=== PATIENT | female | born 1995 | race Caucasian/White ===

== ENCOUNTER → 2016-05-04 | Outpatient (CLI) | payer BC ==
[2016-05-04 14:44] LABS: BASO % 0.7 %; BASO ABS # 0.05 K/uL (0-0.2); COMPLETE YES; EOS % 2.7 %; HEMATOCRIT 44.1 % (37-47); IG% 0.1 %; LYMPH % 19.9 %; LYMPH ABS # 1.41 K/uL (1.2-3.4); MEAN CELL VOLUME 91.9 fL (80-100); MEAN CORPUSCULAR HEMOGLOBIN 30.8 pg (25-34); MEAN CORPUSCULAR HGB CONC 33.6 g/dl (32-36); MEAN PLATELET VOLUME 10.5 fL (7.4-10.4); NEUT % 69.6 %; PLATELET COUNT 353 K/uL (130-400)
[2016-05-04 14:57] LABS: ALT/SGPT 20 U/L (12-78); BLOOD UREA NITROGEN 11 mg/dl (7-18); CALCIUM 9.2 mg/dl (8.5-10.1); CARBON DIOXIDE 22 mmol/L (21-32); CHLORIDE 106 mmol/L (98-107); GLUCOSE 91 mg/dl (70-99); POTASSIUM 4.1 mmol/L (3.5-5.1); SODIUM 139 mmol/L (136-145)
[2016-05-04 15:08] LABS: ALKALINE PHOSPHATASE 44 U/L (45-117); AST/SGOT 10 U/L (15-37)
[2016-05-09 19:31] LABS: T3 REVERSE **TC 90963 19 ng/dL (8-25)
== END | disposition home or self-care (01) ==
LOC: C.LAB 13:17
PROVIDERS: ATTEND Chiropractor
DX: M79.1 Myalgia (principal)

== ENCOUNTER → 2016-07-11 | Outpatient (CLI) | payer BC ==
[2016-07-19 19:49] LABS: CHLAMYDIA TRACH RNA*** NOT DETECTED (NOT DETECTED); GC (NEIS GONORRHOEAE)RNA** NOT DETECTED (NOT DETECTED)
== END | disposition home or self-care (01) ==
LOC: C.LABSPEC 14:54
PROVIDERS: ATTEND Physician Assistant
DX: Z30.430 Encounter for insertion of intrauterine contraceptive device (principal)

== ENCOUNTER → 2016-10-17 | Outpatient (CLI) | payer BC | END | disposition home or self-care (01) | LOC: C.LABSPEC 14:13 | PROVIDERS: ATTEND Physician Assistant | DX: L29.8 Other pruritus (principal) ==

== ENCOUNTER → 2017-07-06 | Outpatient (CLI) | payer BC | END | disposition home or self-care (01) | LOC: C.LAB1850 14:28 | PROVIDERS: ATTEND Physician Assistant | DX: E03.9 Hypothyroidism, unspecified (principal) ==

== ENCOUNTER 2024-01-27 14:10 | Inpatient (IN) ==
[2024-01-27 17:51] LABS: Basophils # (auto) 0.05 K/uL (0.00-0.20); Basophils % (auto) 0.5 %; Eosinophils # (auto) 0.22 K/uL (0.00-0.50); Hematocrit (blood only) 39.7 % (37.0-47.0); Hemoglobin 13.3 g/dl (12.0-16.0); Immature Granulocytes # (auto) 0.06 K/uL (0.01-0.20); Immature Granulocytes % (auto) 0.5 %; Lymphocytes # (auto) 1.83 K/uL (1.20-3.40); Lymphocytes % (auto) 16.7 %; Mean Corpuscular Hemoglobin 28.9 pg (25.0-34.0); Mean Corpuscular Hgb Conc 33.5 g/dL (32.0-36.0); Mean Corpuscular Volume 86.1 fL (80.0-100.0); Mean Platelet Volume 10.7 fL (9.4-12.4); Monocytes # (auto) 0.84 K/uL (0.11-0.59); Monocytes % (auto) 7.7 %; Neutrophils # (auto) 7.94 K/uL (1.40-6.50); Neutrophils % (auto) 72.6 %; Platelet Count 242 K/uL (130-400); RDW Coefficient of Variation 14.2 % (11.5-14.5); RDW Standard Deviation 43.8 fL (36.4-46.3); Red Blood Count 4.61 M/uL (4.20-5.40); White Blood Count 10.94 K/ul (4.8-10.8)
[2024-01-27 17:55] LABS: Albumin Globulin Ratio 1.1 (0.9-2); Albumin Level 3.3 gm/dl (3.4-5.0); BUN Creatinine Ratio 25.8 (10-20); Bilirubin,Total 0.2 mg/dl (0.2-1.0); Creatinine Clr Calc Pharmacy 180.3 ml/min; Globulin 3.1 gm/dl (2.5-4.0); Potassium 3.8 mmol/L (3.5-5.1); Total Protein 6.4 gm/dl (6.0-8.3)
[2024-01-27 18:40] LABS: Creatinine Urine Random 187.8 mg/dl; Protein Creatinine Ratio Urine 0.8 (0-0.2); Total Protein Urine Random 150.7 mg/dl (0-11.9)
[2024-01-27] MEDS ORDERED: OXYTOCIN 30 UNITS/NSS 30 UNITS/500 ML BAG IV PRN (19:41)
[2024-01-27] MEDS ORDERED: CALCIUM CARBONATE 500 MG CHEWABLE TAB PO PRN (19:41)
[2024-01-27] MEDS ORDERED: LIDOCAINE 1% LOCAL 20 ML VIAL INFIL PRN (19:41)
--- NOTE | 2024-01-27 19:46 | History & Physical Report ---
Date of Service January 27, 2024 Assessment & Plan (1) 38 weeks gestation of : (2) Preeclampsia: (3) Gestational diabetes: Plan admit, labs reviewed. given ega and dx rec induction. due to no dilation, rec cx ripening with cytotec. reeval ongoing to place pandey in future. History of Present Illness Chief Complaint: ?leaking Primary Care Provider: Gini Massey 28yo at 38+wks ega presents to LD at [facility] with concerns of leaking, not confirmed but instead meets criteria for diagnosis of preeclampia, without se romaine features. Has had on and off ctx. No rom confirmed over multiple hours. +FM. PNC c/b 1. GDM, last efw 61% 2. Hypothyroid 3. obesity 4. Needs mmr pp. 5. echo normal 6. marginal cord insertion PNL rh pos, ri, gbs neg OBH: g1 GYNH: nl paps no stds Allergies Allergy/AdvReac Type Severity Reaction Status Date / Time house dust Allergy Intermediate ITCHY Verified 01/22/24 09:26 EYES, SNEEZING pollen extracts Allergy Intermediate ITCHY Verified 01/22/24 09:26 EYES, SNEEZING, CONGESTION Home Medications Medication Instructions Recorded Confirmed Type escitalopram oxalate 20 mg tablet 20 mg PO DAILY 04/21/19 01/27/24 History albuterol sulfate 90 mcg/actuation 1 inh inhalation Q6H PRN shortness 03/20/22 01/22/24 Rx aerosol inhaler (ProAir HFA) of breath or wheezing #8.5 grams cetirizine [Zyrtec] PO 11/21/22 01/22/24 History cholecalciferol (vitamin D3) PO 11/21/22 01/22/24 History albuterol sulfate 90 mcg/actuation 2 inh inhalation Q4H PRN shortness 05/01/23 01/27/24 Rx aerosol inhaler (Ventolin HFA) of breath or wheezing #8.5 grams 21-iron fu-folic acid 1 tab PO DAILY 06/27/23 01/27/24 History [ Complete] acetone (urine) test (Ketone Urine #50 ea 09/17/23 01/22/24 Rx Test strips) blood sugar diagnostic (OneTouch #150 ea 09/17/23 01/22/24 Rx Verio test strips) blood-glucose meter (OneTouch #1 ea 09/17/23 01/22/24 Rx Verio Reflect Meter) lancets 33 gauge (OneTouch Delica #150 ea 09/17/23 01/22/24 Rx Plus Lancet) breast pump #1 ea 09/21/23 01/22/24 Rx Synthroid 300 mcg tablet 300 mcg PO DAILY #100 tabs 12/06/23 01/27/24 Rx (levothyroxine) docusate sodium 100 mg capsule 100 mg PO HS 12/06/23 01/27/24 History (Dulcolax Stool Softener (docusate)) Patient History Medical History (Updated 01/27/24 @ 19:45 by Sandi Galeano MD, FACOG) Chlamydia Depression with anxiety Asthma Gail's thyroiditis Goiter Surgical History S/P wisdom tooth extraction Family History Mother Leiomyosarcoma Denies family history of Ovarian cancer Breast cancer Colorectal cancer Social History Smoking Status: Never smoker Do You Dip or Chew Tobacco: No; Hx Alcohol Use: No Hx Substance Use: No Preferred Language: [place] [employer] Manager Required: No Beliefs That Will Affect Care: None marital status: marital status details: Jed Mcclellan (31) [phone] Current Living Situation: Spouse Current Living Situation Comment: Patient lives with her mother, fob, cats-fob changing litter current occupational status: employed current occupation: [employer] Feels Safe at Home: Yes Safety Concerns: Feels Safe At This Time Review of Systems as per Subjective / HPI no garcia or visual change. Physical Exam Constitutional: WD/WN, vitals as above Genitourinary: per nurse cx closed and long. fhts reactive. Results & Data Vital Signs (Past 12 Hours) Vital Signs Temp Pulse Resp BP 01/27/24 19:34 103 H 01/27/24 19:34 143/86 H 01/27/24 15:33 112 H 01/27/24 15:33 127/94 01/27/24 14:40 99.5 F 122 H 20 135/90 01/27/24 14:31 122 H 135/90 01/27/24 14:30 20 01/27/24 14:30 99.5 F 20 Coding Level of Care Code None Diagnoses 38 weeks gestation of Z3A.38 Preeclampsia O14.90 Gestational diabetes O24.419
[2024-01-27] MEDS: miSOPROStoL 50 MCG TAB PO ONE (20:16)
--- NOTE | 2024-01-27 21:03 | Communication Note ---
Date of Service: January 27, 2024 spoke with nurse. pt stable. no concerns. will see how responds to po cytotec. plan exam at 4hrs and redose cytotec vs. if dilated cx, can consider pandey balloon.
[2024-01-28] MEDS: miSOPROStoL 50 MCG TAB PO ONE (00:16)
--- NOTE | 2024-01-28 04:12 | Labor Progress Brief Note ---
Date of Service January 28, 2024 Subjective no garcia or visual change. no ruq pain. no n/v. some cramps. no ctx, rom. Assessment & Plan (1) 38 weeks gestation of : (2) Preeclampsia: (3) Gestational diabetes: (4) Obesity affecting : Plan no evidence of worsening disease. bps ok. will plan to see if toco would support additional cytotec as i am not able to place pandey at this time. ultimate goal will be pandey with pit. Admission and Anticipated Discharge Date Admission Date: January 27, 2024 Physical Exam Constitutional: WD/WN, vitals as above Respiratory: normal respiratory effort, lungs clear to auscultation Cardiovascular: Rate/Rhythm: regular rate and regular rhythm Gastrointestinal (Abdomen): soft gravid nt efw 7-8# Musculoskeletal: tr edema nontender calves Neurologic: DTRs +2 no clonus Psychiatric: A+Ox3, euthymic affect Genitourinary: OB Exam Abdomen: + vertex (by US) Manual OB Exam: + cervical dilation fingertip (ext os, int os closed), + cervical effacement 60% and + station -2 OB Exam Monitor Tracing: + external FHT monitor used, + external uterine monitor used (just getting back on monitor), + category I and + normal FHT variability Results & Data Vital Signs (Past 12 Hours) Vital Signs Temp Pulse Resp BP 01/28/24 02:20 86 134/89 01/28/24 00:19 18 01/28/24 00:19 98.8 F 18 01/28/24 00:18 92 H 142/94 H 01/27/24 22:42 97.9 F 01/27/24 22:42 93 H 01/27/24 22:42 131/86 01/27/24 20:00 98.6 F 18 01/27/24 19:34 103 H 01/27/24 19:34 143/86 H Coding Level of Care Code None Diagnoses 38 weeks gestation of Z3A.38 Preeclampsia O14.90 Gestational diabetes O24.419 Obesity affecting O99.210
[2024-01-28] MEDS: OXYTOCIN 10 UNITS/ML VIAL ONE (04:16)
[2024-01-28] MEDS: miSOPROStoL 50 MCG TAB PO STA (06:48)
--- NOTE | 2024-01-28 11:01 | Labor Progress Brief Note ---
Date of Service January 28, 2024 Starting to feel ctx, is now 4h s/p most recent cytotec. Cervix 0.5/thick/high FHT Cat 1 [place] Q4 [place] bulb inserted, 35cc sterile water. Will start pitocin. Patient agreeable. Assessment & Plan Admission and Anticipated Discharge Date Admission Date: January 27, 2024 Results & Data Vital Signs (Past 12 Hours) Vital Signs Temp Pulse Resp BP 01/28/24 10:53 84 136/83 01/28/24 10:27 101 H 135/85 01/28/24 07:08 36.8 C 82 18 136/92 01/28/24 04:08 83 153/99 H 01/28/24 04:00 18 01/28/24 02:20 86 134/89 01/28/24 00:19 18 01/28/24 00:19 37.1 C 18 01/28/24 00:18 92 H 142/94 H Coding Level of Care Code None
[2024-01-28] MEDS: OXYTOCIN 30 UNITS/NSS 30 UNITS/500 ML BAG IV PRN (11:15)
[2024-01-28] MEDS: LACTATED RINGER'S 1,000 ML IV SCH (11:15)
[2024-01-28] MEDS: miSOPROStoL 50 MCG TAB ONE (11:31)
[2024-01-28] MEDS ORDERED: LIDOCAINE 2% MPF LOCAL 5 ML VIAL EPI PRN (14:18)
[2024-01-28] MEDS ORDERED: diphenhydrAMINE 50 MG/ML VIAL IV PRN (14:18)
[2024-01-28] MEDS ORDERED: NALBUPHINE HCL INJ 10 MG/ML AMP IV PRN (14:18)
[2024-01-28] MEDS ORDERED: SODIUM CHLORIDE 0.9% PF INJ 10 ML VIAL EPI PRN (14:18)
[2024-01-28] MEDS ORDERED: NALOXONE HCL 0.4 MG/1 ML VIAL/CARP IV PRN (14:18)
[2024-01-28] MEDS ORDERED: ROPIVACAINE 0.5% PF 5 MG/ML 20 ML VIAL EPI PRN (14:18)
[2024-01-28] MEDS ORDERED: ePHEDrine sulfate 50 MG/ML AMP IV PRN (14:18)
[2024-01-28] MEDS ORDERED: NALOXONE HCL 1 MG in SODIUM CHLORIDE 0.9% 1,000 ML IV PRN (14:18)
--- NOTE | 2024-01-28 14:19 | Anesthesiology Consultation ---
Date of Service January 28, 2024 Assessment & Plan (1) Encounter for pre-operative examination: Chart Review Chart Review: Patient NOT seen in Pre Admission Testing and Acceptable Risk for Labor Epidural Consults Requested none History Height/Weight Height: 5 ft 6 in Weight: 124.284 kg Allergies Allergy/AdvReac Type Severity Reaction Status Date / Time house dust Allergy Intermediate ITCHY Verified 01/22/24 09:26 EYES, SNEEZING pollen extracts Allergy Intermediate ITCHY Verified 01/22/24 09:26 EYES, SNEEZING, CONGESTION Medications Home Medications Medication Instructions Recorded Confirmed Last Taken escitalopram oxalate 20 mg tablet 20 mg PO DAILY 04/21/19 01/27/24 01/26/24 21:00 acetone (urine) test (Ketone Urine #50 ea 09/17/23 01/22/24 Unknown Test strips) blood sugar diagnostic (OneTouch #150 ea 09/17/23 01/22/24 Unknown Verio test strips) blood-glucose meter (OneTouch #1 ea 09/17/23 01/22/24 Unknown Verio Reflect Meter) lancets 33 gauge (OneTouch Delica #150 ea 09/17/23 01/22/24 Unknown Plus Lancet) breast pump #1 ea 09/21/23 01/22/24 Unknown Synthroid 300 mcg tablet 300 mcg PO DAILY #100 tabs 12/06/23 01/27/24 01/27/24 09:00 (levothyroxine) docusate sodium 100 mg capsule 100 mg PO HS 12/06/23 01/27/24 Unknown (Dulcolax Stool Softener (docusate)) [id number] 1 mg 1 tab PO DAILY 01/27/24 01/27/24 Unknown tablet Active Medications Generic Name Dose Route Start Last Admin Trade Name Freq PRN Reason Stop Dose Admin Oxytocin 30 units in 500 mls @ 7 mls/hr 01/28/24 10:58 01/28/24 13:20 Pitocin 30 Units/Nss IV 01/30/24 10:57 0.42 units/hr .Q24H PRN 7 mls/hr Labor Induction/Augmentation Titration Protocol 0.42 UNITS/HR Lactated Ringer's 1,000 mls @ 50 mls/hr 01/28/24 11:00 01/28/24 11:15 Lr IV 01/29/24 10:59 50 mls/hr .Q20H JUSTA Administration Past Medical History Medical History (Updated 01/28/24 @ 14:19 by Ezequiel Singh MD) Encounter for pre-operative examination Chlamydia Depression with anxiety Asthma Gail's thyroiditis Goiter Exercise / Class Metabolic Activity II 4-5 Yardwork/Stairs/Walk up hill Past Family History Family History Mother Leiomyosarcoma Denies family history of Ovarian cancer Breast cancer Colorectal cancer Past Surgical History Surgical History S/P wisdom tooth extraction Past Anesthesia History No Hx of Anesthesia Complications and No Family Hx of Anesthesia Complications Social History Smoking Status: Never smoker Do You Dip or Chew Tobacco: No Hx Alcohol Use: No Hx Substance Use: No substance use type: does not use Physical Exam Vital Signs Last Vital Signs Temp 36.8 C 01/28/24 14:28 Pulse 91 H 01/28/24 14:47 Resp 18 01/28/24 14:28 BP 123/87 01/28/24 14:47 Pulse Ox 100 01/28/24 14:47 Testing Laboratory Results 01/27/24 17:26 01/27/24 17:26 Blood Type A Positive 01/27/24 17:26 Antibody Screen NEGATIVE 01/27/24 17:26 01/28/24 04:22 POC Glucose 73
[2024-01-28] MEDS: LIDOCAINE 2%/EPINEPHRINE 1:200,000 20 ML PF EPI STA (14:56)
[2024-01-28] MEDS: BUPIVACAINE 0.25% PF 30 ML VIAL EPI PRN (14:57)
[2024-01-28] MEDS: fentaNYL citrate PF 100 MCG/2 ML VIAL EPI PRN (14:57)
[2024-01-28] MEDS: fentANYL 2 MCG/ML BUPIVacaine 0.125%-NSS 100ML BAG EPI PRN (14:59)
[2024-01-28] MEDS: BUPIVACAINE 0.25% PF 30 ML VIAL ONE (17:13)
[2024-01-28] MEDS: fentANYL 2 MCG/ML BUPIVacaine 0.125%-NSS 100ML BAG ONE (17:13)
[2024-01-28] MEDS: ePHEDrine sulfate 50 MG/ML AMP ONE (17:13)
[2024-01-28] MEDS: SODIUM CHLORIDE 0.9% PF INJ 10 ML VIAL ONE (17:13)
[2024-01-28] MEDS: fentaNYL citrate PF 100 MCG/2 ML VIAL ONE (17:13)
[2024-01-28] MEDS: LIDOCAINE 2%/EPINEPHRINE 1:200,000 20 ML PF ONE (17:14)
[2024-01-28] MEDS: BUPIVACAINE 0.25% PF 30 ML VIAL EPI STA (17:14)
[2024-01-28] MEDS: SODIUM CHLORIDE 0.9% PF INJ 10 ML VIAL EPI STA (17:14)
[2024-01-28] MEDS: fentaNYL citrate PF 100 MCG/2 ML VIAL EPI STA (17:14)
[2024-01-28] MEDS: ONDANSETRON INJ 2 MG/ML 2 ML VIAL IV PRN (17:43)
--- NOTE | 2024-01-28 18:52 | Labor Progress Brief Note ---
Date of Service January 28, 2024 Subjective Comfortable with epidural. FHT Cat 1 [place] Q 2 [place] bulb fell out. 4-/-3 AROM clear fluid. Assessment & Plan Admission and Anticipated Discharge Date Admission Date: January 27, 2024 Results & Data Vital Signs (Past 12 Hours) Vital Signs Temp Pulse Resp BP Pulse Ox 01/28/24 18:47 96 H 100 01/28/24 18:42 96 H 100 01/28/24 18:39 102 H 125/73 01/28/24 18:37 95 H 100 01/28/24 18:32 103 H 100 01/28/24 18:30 18 01/28/24 18:30 18 01/28/24 18:27 101 H 99 01/28/24 18:22 101 H 96 01/28/24 18:17 97 H 100 01/28/24 18:12 103 H 100 01/28/24 18:08 92 H 120/69 01/28/24 18:07 90 96 01/28/24 18:02 97 H 96 01/28/24 18:00 18 01/28/24 18:00 18 01/28/24 17:57 93 H 98 01/28/24 17:52 100 01/28/24 17:52 97 H 01/28/24 17:52 99 H 118/68 01/28/24 17:47 112 H 98 01/28/24 17:45 92 H 113/67 01/28/24 17:42 98 H 97 01/28/24 17:37 107 H 96 01/28/24 17:32 112 H 99 01/28/24 17:30 18 01/28/24 17:30 18 01/28/24 17:27 103 H 100 01/28/24 17:22 98 H 103/70 98 01/28/24 17:17 103 H 100 01/28/24 17:12 95 H 100 01/28/24 17:11 99 H 95/53 L 01/28/24 17:09 78 91 01/28/24 17:07 99 H 100 01/28/24 17:02 94 H 100 01/28/24 17:00 18 01/28/24 17:00 18 01/28/24 16:57 95 H 100 01/28/24 16:54 106 H 92 01/28/24 16:52 93 H 95/50 L 100 01/28/24 16:47 102 H 100 01/28/24 16:42 98 H 100 01/28/24 16:38 96 H 95/54 L 01/28/24 16:37 96 H 100 01/28/24 16:32 97 H 100 01/28/24 16:30 18 01/28/24 16:30 36.8 C 18 01/28/24 16:27 103 H 100 01/28/24 16:22 97 H 100 01/28/24 16:17 98 H 99 01/28/24 16:12 95 H 99 01/28/24 16:08 99 H 112/58 L 01/28/24 16:07 98 H 100 01/28/24 16:02 96 H 100 01/28/24 16:00 18 01/28/24 16:00 18 01/28/24 15:57 94 H 99 01/28/24 15:52 87 126/74 97 01/28/24 15:47 94 H 98 01/28/24 15:42 90 98 01/28/24 15:37 98 01/28/24 15:37 85 01/28/24 15:37 88 115/70 01/28/24 15:32 83 98 01/28/24 15:30 18 01/28/24 15:30 18 01/28/24 15:30 18 01/28/24 15:27 85 100 01/28/24 15:23 85 108/70 01/28/24 15:22 94 H 97 01/28/24 15:17 92 H 100 01/28/24 15:12 97 H 100 01/28/24 15:07 95 H 100 01/28/24 15:06 90 106/72 01/28/24 15:02 94 H 100 01/28/24 15:01 92 H 112/72 01/28/24 15:00 18 01/28/24 15:00 18 01/28/24 14:59 102 H 117/72 01/28/24 14:58 18 01/28/24 14:58 18 01/28/24 14:57 99 01/28/24 14:57 105 H 01/28/24 14:57 100 H 112/75 01/28/24 14:56 18 01/28/24 14:56 18 01/28/24 14:55 92 H 116/81 01/28/24 14:54 18 01/28/24 14:54 18 01/28/24 14:52 96 H 18 99 01/28/24 14:50 92 H 124/88 01/28/24 14:47 100 01/28/24 14:47 91 H 01/28/24 14:47 97 H 123/87 01/28/24 14:42 106 H 100 01/28/24 14:37 100 H 99 01/28/24 14:32 92 H 100 01/28/24 14:28 18 01/28/24 14:28 36.8 C 18 01/28/24 14:27 93 H 99 01/28/24 14:26 90 144/92 H 01/28/24 13:25 36.8 C 86 145/98 H 01/28/24 13:00 18 01/28/24 13:00 18 01/28/24 12:22 85 136/93 01/28/24 12:00 18 01/28/24 12:00 18 01/28/24 11:30 18 01/28/24 11:30 18 01/28/24 11:30 36.8 C 18 01/28/24 10:53 84 136/83 01/28/24 10:27 101 H 135/85 01/28/24 07:08 36.8 C 82 18 136/92 Coding Level of Care Code None
--- NOTE | 2024-01-29 02:13 | Labor Progress Brief Note ---
Date of Service January 29, 2024 Subjective Comfortable. FHT Cat 1 toco Q 2 SVE 5/70/-2 IUPC, FSE placed. Discussed plan to monitor for cervical change, will increase pitocin up to 30. She is aware that if no further cervix change, would then be thinking about delivery via section. Assessment & Plan Admission and Anticipated Discharge Date Admission Date: January 27, 2024 Results & Data Vital Signs (Past 12 Hours) Vital Signs Temp Pulse Resp BP Pulse Ox 01/29/24 02:07 91 01/29/24 02:07 110 H 01/29/24 02:07 119 H 93 01/29/24 02:02 103 H 100 01/29/24 01:57 84 97 01/29/24 01:54 97 H 93 01/29/24 01:52 97 01/29/24 01:52 103 H 01/29/24 01:52 114 H 112/79 01/29/24 01:47 101 H 95 01/29/24 01:42 89 95 01/29/24 01:38 90 110/75 01/29/24 01:37 84 94 01/29/24 01:36 90 94 01/29/24 01:32 93 H 94 01/29/24 01:28 97 H 93 01/29/24 01:27 88 95 01/29/24 01:23 93 H 111/76 01/29/24 01:22 94 H 95 01/29/24 01:17 100 H 97 01/29/24 01:12 92 H 96 01/29/24 01:10 18 01/29/24 01:10 37.2 C 18 01/29/24 01:08 97 H 117/77 01/29/24 01:07 98 H 96 01/29/24 01:05 104 H 93 01/29/24 01:02 92 H 95 01/29/24 00:57 96 H 93 01/29/24 00:53 94 H 94 01/29/24 00:52 96 01/29/24 00:52 89 01/29/24 00:52 102 H 100/69 01/29/24 00:48 98 H 94 01/29/24 00:47 100 H 96 01/29/24 00:42 107 H 98 01/29/24 00:38 112 H 106/76 01/29/24 00:37 117 H 99 01/29/24 00:32 109 H 96 01/29/24 00:27 113 H 97 01/29/24 00:23 114 H 121/74 01/29/24 00:22 105 H 99 01/29/24 00:17 114 H 100 01/29/24 00:12 116 H 100 01/29/24 00:07 102 H 100 01/29/24 00:02 90 97 01/28/24 23:57 79 96 01/28/24 23:53 83 94 01/28/24 23:52 96 01/28/24 23:52 80 01/28/24 23:52 77 105/61 01/28/24 23:47 83 97 01/28/24 23:42 80 96 01/28/24 23:37 81 103/52 L 96 01/28/24 23:32 80 96 01/28/24 23:27 78 95 01/28/24 23:22 97 01/28/24 23:22 79 01/28/24 23:22 73 98/63 L 01/28/24 23:17 81 98 01/28/24 23:12 86 100 01/28/24 23:07 96 H 114/64 97 01/28/24 23:02 36.8 C 102 H 99 01/28/24 22:57 87 95 01/28/24 22:56 94 H 94 01/28/24 22:52 93 H 116/57 L 95 01/28/24 22:50 85 94 01/28/24 22:47 90 95 01/28/24 22:42 93 H 95 01/28/24 22:37 96 01/28/24 22:37 95 H 01/28/24 22:37 96 H 113/55 L 01/28/24 22:32 92 H 95 01/28/24 22:29 92 H 94 01/28/24 22:27 96 H 95 01/28/24 22:22 94 H 108/60 97 01/28/24 22:17 88 97 01/28/24 22:12 89 97 01/28/24 22:07 107 H 98 01/28/24 22:02 102 H 97 01/28/24 21:57 94 01/28/24 21:57 97 H 01/28/24 21:57 101 H 94 01/28/24 21:53 104 H 108/67 01/28/24 21:52 105 H 96 01/28/24 21:47 108 H 99 01/28/24 21:42 109 H 100 01/28/24 21:37 110 H 100 01/28/24 21:32 103 H 100 01/28/24 21:27 103 H 100 01/28/24 21:22 108 H 114/76 100 01/28/24 21:17 105 H 100 01/28/24 21:12 106 H 99 01/28/24 21:10 101 H 92 01/28/24 21:07 97 H 100 01/28/24 21:02 113 H 100 01/28/24 21:00 36.9 C 01/28/24 20:57 130 H 100 01/28/24 20:52 99 01/28/24 20:52 100 H 01/28/24 20:52 101 H 103/61 01/28/24 20:47 90 98 01/28/24 20:42 91 H 98 01/28/24 20:37 99 01/28/24 20:37 90 01/28/24 20:37 88 106/57 L 01/28/24 20:32 96 H 99 01/28/24 20:27 91 H 100 01/28/24 20:22 93 H 112/62 99 01/28/24 20:17 84 100 01/28/24 20:12 101 H 100 01/28/24 20:07 100 H 99 01/28/24 20:02 96 H 99 01/28/24 19:58 86 94 01/28/24 19:57 89 95 01/28/24 19:52 95 01/28/24 19:52 90 01/28/24 19:52 91 H 109/57 L 01/28/24 19:47 92 H 97 01/28/24 19:42 95 H 98 01/28/24 19:37 94 H 114/58 L 99 01/28/24 19:32 97 H 99 01/28/24 19:27 97 H 98 01/28/24 19:22 99 01/28/24 19:22 93 H 01/28/24 19:22 95 H 109/55 L 01/28/24 19:17 103 H 98 01/28/24 19:12 98 01/28/24 19:12 97 H 01/28/24 19:12 92 H 94 01/28/24 19:07 101 H 131/74 100 01/28/24 19:02 96 H 100 01/28/24 19:00 37.0 C 20 01/28/24 19:00 20 01/28/24 19:00 18 01/28/24 19:00 18 01/28/24 18:57 114 H 100 01/28/24 18:52 109 H 125/71 100 01/28/24 18:47 96 H 100 01/28/24 18:42 96 H 100 01/28/24 18:39 102 H 125/73 01/28/24 18:37 95 H 100 01/28/24 18:32 103 H 100 01/28/24 18:30 18 01/28/24 18:30 18 01/28/24 18:27 101 H 99 01/28/24 18:22 101 H 96 01/28/24 18:17 97 H 100 01/28/24 18:12 103 H 100 01/28/24 18:08 92 H 120/69 01/28/24 18:07 90 96 01/28/24 18:02 97 H 96 01/28/24 18:00 18 01/28/24 18:00 18 01/28/24 17:57 93 H 98 01/28/24 17:52 100 01/28/24 17:52 97 H 01/28/24 17:52 99 H 118/68 01/28/24 17:47 112 H 98 01/28/24 17:45 92 H 113/67 01/28/24 17:42 98 H 97 01/28/24 17:37 107 H 96 01/28/24 17:32 112 H 99 01/28/24 17:30 18 01/28/24 17:30 18 01/28/24 17:27 103 H 100 01/28/24 17:22 98 H 103/70 98 01/28/24 17:17 103 H 100 01/28/24 17:12 95 H 100 01/28/24 17:11 99 H 95/53 L 01/28/24 17:09 78 91 01/28/24 17:07 99 H 100 01/28/24 17:02 94 H 100 01/28/24 17:00 18 01/28/24 17:00 18 01/28/24 16:57 95 H 100 01/28/24 16:54 106 H 92 01/28/24 16:52 93 H 95/50 L 100 01/28/24 16:47 102 H 100 01/28/24 16:42 98 H 100 01/28/24 16:38 96 H 95/54 L 01/28/24 16:37 96 H 100 01/28/24 16:32 97 H 100 01/28/24 16:30 18 01/28/24 16:30 36.8 C 18 01/28/24 16:27 103 H 100 01/28/24 16:22 97 H 100 01/28/24 16:17 98 H 99 01/28/24 16:12 95 H 99 01/28/24 16:08 99 H 112/58 L 01/28/24 16:07 98 H 100 01/28/24 16:02 96 H 100 01/28/24 16:00 18 01/28/24 16:00 18 01/28/24 15:57 94 H 99 01/28/24 15:52 87 126/74 97 01/28/24 15:47 94 H 98 01/28/24 15:42 90 98 01/28/24 15:37 98 01/28/24 15:37 85 01/28/24 15:37 88 115/70 01/28/24 15:32 83 98 01/28/24 15:30 18 01/28/24 15:30 18 01/28/24 15:30 18 01/28/24 15:27 85 100 01/28/24 15:23 85 108/70 01/28/24 15:22 94 H 97 01/28/24 15:17 92 H 100 01/28/24 15:12 97 H 100 01/28/24 15:07 95 H 100 01/28/24 15:06 90 106/72 01/28/24 15:02 94 H 100 01/28/24 15:01 92 H 112/72 01/28/24 15:00 18 01/28/24 15:00 18 01/28/24 14:59 102 H 117/72 01/28/24 14:58 18 01/28/24 14:58 18 01/28/24 14:57 99 01/28/24 14:57 105 H 01/28/24 14:57 100 H 112/75 01/28/24 14:56 18 01/28/24 14:56 18 01/28/24 14:55 92 H 116/81 01/28/24 14:54 18 01/28/24 14:54 18 01/28/24 14:52 96 H 18 99 01/28/24 14:50 92 H 124/88 01/28/24 14:47 100 01/28/24 14:47 91 H 01/28/24 14:47 97 H 123/87 01/28/24 14:42 106 H 100 01/28/24 14:37 100 H 99 01/28/24 14:32 92 H 100 01/28/24 14:28 18 01/28/24 14:28 36.8 C 18 01/28/24 14:27 93 H 99 01/28/24 14:26 90 144/92 H Coding Level of Care Code None
--- NOTE | 2024-01-29 06:45 | Labor Progress Brief Note ---
Date of Service January 29, 2024 Subjective FHT Cat 1 [place] Q 2 - Adequate contractions x 4h Pitocin at 24. Cervix remains unchanged. Discussion of failed labor induction - patient is eager to proceed to section. Reviewed consent, questions answered. Assessment & Plan Admission and Anticipated Discharge Date Admission Date: January 27, 2024 Results & Data Vital Signs (Past 12 Hours) Vital Signs Temp Pulse Resp BP Pulse Ox 01/29/24 06:38 122 H 114/69 100 01/29/24 06:33 122 H 100 01/29/24 06:28 111 H 98 01/29/24 06:23 95 H 97 01/29/24 06:22 107 H 109/59 L 01/29/24 06:18 97 H 97 01/29/24 06:13 106 H 98 01/29/24 06:08 101 H 100 01/29/24 06:07 96 H 109/58 L 01/29/24 06:03 93 H 98 01/29/24 05:58 101 H 97 01/29/24 05:53 98 H 99 01/29/24 05:52 104 H 104/53 L 01/29/24 05:48 110 H 100 01/29/24 05:43 99 H 100 01/29/24 05:38 105 H 102/52 L 100 01/29/24 05:33 101 H 100 01/29/24 05:28 93 H 98 01/29/24 05:23 107 H 100 01/29/24 05:22 99 H 115/76 01/29/24 05:18 85 96 01/29/24 05:13 89 96 01/29/24 05:08 91 H 97 01/29/24 05:07 91 H 126/85 01/29/24 05:05 37.2 C 01/29/24 05:03 88 97 01/29/24 04:58 93 H 96 01/29/24 04:53 92 H 96 01/29/24 04:52 100 H 125/76 01/29/24 04:48 94 H 97 01/29/24 04:43 101 H 97 01/29/24 04:38 104 H 100 01/29/24 04:37 113 H 126/84 01/29/24 04:33 121 H 100 01/29/24 04:28 126 H 100 01/29/24 04:23 89 96 01/29/24 04:22 90 106/66 01/29/24 04:18 87 97 01/29/24 04:15 83 93 01/29/24 04:13 78 92 01/29/24 04:09 83 94 01/29/24 04:08 95 H 96 01/29/24 04:04 79 93 01/29/24 04:03 80 97 01/29/24 03:58 84 95 01/29/24 03:53 81 96 01/29/24 03:52 81 103/65 01/29/24 03:48 83 96 01/29/24 03:43 81 97 01/29/24 03:38 85 97 01/29/24 03:37 86 114/58 L 01/29/24 03:33 90 95 01/29/24 03:28 92 H 98 01/29/24 03:23 89 99 01/29/24 03:22 96 H 111/65 01/29/24 03:18 97 H 98 01/29/24 03:13 92 H 100 01/29/24 03:08 100 H 99 01/29/24 03:07 96 H 114/66 01/29/24 03:05 36.8 C 01/29/24 03:04 91 H 94 01/29/24 03:03 87 95 01/29/24 02:58 90 95 01/29/24 02:57 90 94 01/29/24 02:53 88 95 01/29/24 02:52 97 H 108/55 L 01/29/24 02:51 92 H 94 01/29/24 02:48 96 H 95 01/29/24 02:43 97 H 98 01/29/24 02:38 100 01/29/24 02:38 101 H 01/29/24 02:38 104 H 113/59 L 01/29/24 02:32 101 H 100 01/29/24 02:27 93 H 99 01/29/24 02:22 89 111/56 L 99 01/29/24 02:17 96 H 100 01/29/24 02:12 103 H 100 01/29/24 02:07 91 01/29/24 02:07 110 H 01/29/24 02:07 119 H 93 01/29/24 02:02 103 H 100 01/29/24 01:57 84 97 01/29/24 01:54 97 H 93 01/29/24 01:52 97 01/29/24 01:52 103 H 01/29/24 01:52 114 H 112/79 01/29/24 01:47 101 H 95 01/29/24 01:42 89 95 01/29/24 01:38 90 110/75 01/29/24 01:37 84 94 01/29/24 01:36 90 94 01/29/24 01:32 93 H 94 01/29/24 01:28 97 H 93 01/29/24 01:27 88 95 01/29/24 01:23 93 H 111/76 01/29/24 01:22 94 H 95 01/29/24 01:17 100 H 97 01/29/24 01:12 92 H 96 01/29/24 01:10 18 01/29/24 01:10 37.2 C 18 01/29/24 01:08 97 H 117/77 01/29/24 01:07 98 H 96 01/29/24 01:05 104 H 93 01/29/24 01:02 92 H 95 01/29/24 00:57 96 H 93 01/29/24 00:53 94 H 94 01/29/24 00:52 96 01/29/24 00:52 89 01/29/24 00:52 102 H 100/69 01/29/24 00:48 98 H 94 01/29/24 00:47 100 H 96 01/29/24 00:42 107 H 98 01/29/24 00:38 112 H 106/76 01/29/24 00:37 117 H 99 01/29/24 00:32 109 H 96 01/29/24 00:27 113 H 97 01/29/24 00:23 114 H 121/74 01/29/24 00:22 105 H 99 01/29/24 00:17 114 H 100 01/29/24 00:12 116 H 100 01/29/24 00:07 102 H 100 01/29/24 00:02 90 97 01/28/24 23:57 79 96 01/28/24 23:53 83 94 01/28/24 23:52 96 01/28/24 23:52 80 01/28/24 23:52 77 105/61 01/28/24 23:47 83 97 01/28/24 23:42 80 96 01/28/24 23:37 81 103/52 L 96 01/28/24 23:32 80 96 01/28/24 23:27 78 95 01/28/24 23:22 97 01/28/24 23:22 79 01/28/24 23:22 73 98/63 L 01/28/24 23:17 81 98 01/28/24 23:12 86 100 01/28/24 23:07 96 H 114/64 97 01/28/24 23:02 36.8 C 102 H 99 01/28/24 22:57 87 95 01/28/24 22:56 94 H 94 01/28/24 22:52 93 H 116/57 L 95 01/28/24 22:50 85 94 01/28/24 22:47 90 95 01/28/24 22:42 93 H 95 01/28/24 22:37 96 01/28/24 22:37 95 H 01/28/24 22:37 96 H 113/55 L 01/28/24 22:32 92 H 95 01/28/24 22:29 92 H 94 01/28/24 22:27 96 H 95 01/28/24 22:22 94 H 108/60 97 01/28/24 22:17 88 97 01/28/24 22:12 89 97 01/28/24 22:07 107 H 98 01/28/24 22:02 102 H 97 01/28/24 21:57 94 01/28/24 21:57 97 H 01/28/24 21:57 101 H 94 01/28/24 21:53 104 H 108/67 01/28/24 21:52 105 H 96 01/28/24 21:47 108 H 99 01/28/24 21:42 109 H 100 01/28/24 21:37 110 H 100 01/28/24 21:32 103 H 100 01/28/24 21:27 103 H 100 01/28/24 21:22 108 H 114/76 100 01/28/24 21:17 105 H 100 01/28/24 21:12 106 H 99 01/28/24 21:10 101 H 92 01/28/24 21:07 97 H 100 01/28/24 21:02 113 H 100 01/28/24 21:00 36.9 C 11/11/24 20:57 130 H 100 01/28/24 20:52 99 01/28/24 20:52 100 H 01/28/24 20:52 101 H 103/61 01/28/24 20:47 90 98 01/28/24 20:42 91 H 98 01/28/24 20:37 99 01/28/24 20:37 90 01/28/24 20:37 88 106/57 L 01/28/24 20:32 96 H 99 01/28/24 20:27 91 H 100 01/28/24 20:22 93 H 112/62 99 01/28/24 20:17 84 100 01/28/24 20:12 101 H 100 01/28/24 20:07 100 H 99 01/28/24 20:02 96 H 99 01/28/24 19:58 86 94 01/28/24 19:57 89 95 01/28/24 19:52 95 01/28/24 19:52 90 01/28/24 19:52 91 H 109/57 L 01/28/24 19:47 92 H 97 01/28/24 19:42 95 H 98 01/28/24 19:37 94 H 114/58 L 99 01/28/24 19:32 97 H 99 01/28/24 19:27 97 H 98 01/28/24 19:22 99 01/28/24 19:22 93 H 01/28/24 19:22 95 H 109/55 L 01/28/24 19:17 103 H 98 01/28/24 19:12 98 01/28/24 19:12 97 H 01/28/24 19:12 92 H 94 01/28/24 19:07 101 H 131/74 100 01/28/24 19:02 96 H 100 01/28/24 19:00 37.0 C 20 01/28/24 19:00 20 01/28/24 19:00 18 01/28/24 19:00 18 01/28/24 18:57 114 H 100 01/28/24 18:52 109 H 125/71 100 01/28/24 18:47 96 H 100 Coding Level of Care Code None
--- NOTE | 2024-01-29 07:01 | History & Physical Bridge Note ---
Date of Service January 29, 2024 History & Physical Bridge Note I have examined the patient, reviewed the History & Physical and in the interval since the performance of the History & Physical I have noted the following changes of clinical significance: no changes noted
[2024-01-29] MEDS ORDERED: MoRPHine SULFATE PF 1 MG/ML 10 ML AMP/VIAL ONE (07:08)
[2024-01-29 07:15] LABS: Basophils # (auto) 0.05 K/uL (0.00-0.20); Basophils % (auto) 0.3 %; Eosinophils # (auto) 0.07 K/uL (0.00-0.50); Eosinophils % (auto) 0.4 %; Hematocrit (blood only) 37.9 % (37.0-47.0); Hemoglobin 12.5 g/dl (12.0-16.0); Immature Granulocytes # (auto) 0.09 K/uL (0.01-0.20); Immature Granulocytes % (auto) 0.6 %; Lymphocytes # (auto) 1.39 K/uL (1.20-3.40); Lymphocytes % (auto) 8.6 %; Mean Corpuscular Hemoglobin 28.5 pg (25.0-34.0); Mean Corpuscular Volume 86.5 fL (80.0-100.0); Mean Platelet Volume 10.9 fL (9.4-12.4); Monocytes # (auto) 1.19 K/uL (0.11-0.59); Monocytes % (auto) 7.4 %; Neutrophils # (auto) 13.31 K/uL (1.40-6.50); Neutrophils % (auto) 82.7 %; Platelet Count 241 K/uL (130-400); RDW Coefficient of Variation 14.2 % (11.5-14.5); RDW Standard Deviation 44.7 fL (36.4-46.3); Red Blood Count 4.38 M/uL (4.20-5.40)
[2024-01-29] MEDS ORDERED: OXYTOCIN 20 UNITS/1002ML LR IV ONE (07:20)
[2024-01-29] MEDS: CITRIC ACID/SODIUM CITRATE 15 ML UDC PO SCH (07:23)
[2024-01-29 07:26] LABS: Albumin Globulin Ratio 1.1 (0.9-2); Albumin Level 3.2 gm/dl (3.4-5.0); BUN Creatinine Ratio 16.1 (10-20); Bilirubin,Total 0.5 mg/dl (0.2-1.0); Creatinine Clr Calc Pharmacy 128.5 ml/min; Globulin 2.8 gm/dl (2.5-4.0); Potassium 4.4 mmol/L (3.5-5.1)
[2024-01-29] MEDS: ceFAZolin 3000MG 3,000 MG/72.5 ML BAG IV SCH (07:30)
[2024-01-29] MEDS ORDERED: MoRPHine SULFATE PF 1 MG/ML 10 ML AMP/VIAL INT SPINAL ONE (07:34)
[2024-01-29] MEDS ORDERED: MoRPHine SULFATE 2 MG/ML CARP IV PRN (07:34)
[2024-01-29] MEDS ORDERED: NALOXONE HCL 1 MG in SODIUM CHLORIDE 0.9% 1,000 ML IV PRN (07:34)
[2024-01-29] MEDS ORDERED: NALOXONE HCL 0.4 MG/1 ML VIAL/CARP IV PRN (07:34)
[2024-01-29] MEDS ORDERED: ONDANSETRON INJ 2 MG/ML 2 ML VIAL IV PRN (07:34)
[2024-01-29] MEDS ORDERED: NALOXONE HCL 0.08 MG in SYRINGE 1.8 ML IV PRN (07:34)
[2024-01-29] MEDS ORDERED: oxyCODONE HCL IR 5 MG TAB (IMMEDIATE RELEASE) PO PRN (07:34)
[2024-01-29] MEDS ORDERED: NALBUPHINE HCL INJ 10 MG/ML AMP IV PRN (07:34)
[2024-01-29] MEDS ORDERED: diphenhydrAMINE 50 MG/ML VIAL IV PRN (07:34)
[2024-01-29] MEDS ORDERED: PROMETHAZINE 6.25 MG/50.25 ML BAG IV PRN (07:34)
[2024-01-29] MEDS ORDERED: ePHEDrine sulfate 50 MG/ML AMP IV PRN (07:34)
[2024-01-29] MEDS ORDERED: DC INTRASPINAL MORPHINE SCH (07:45)
[2024-01-29] MEDS ORDERED: LACTATED RINGER'S 1,000 ML IV SCH ×2 (07:45→09:00)
[2024-01-29] MEDS ORDERED: NO NARCOTICS OR SEDATIVES SCH (07:45)
[2024-01-29] MEDS ORDERED: PHENYLEPHRINE HCL 25 MG/250 ML NSS IV ONE (08:14)
[2024-01-29] MEDS ORDERED: DEXAMETHASONE SOD INJ 4 MG/ML VIAL ONE (08:14)
[2024-01-29] MEDS ORDERED: OXYTOCIN 10 UNITS/ML VIAL ONE (08:14)
[2024-01-29] MEDS ORDERED: ONDANSETRON INJ 2 MG/ML 2 ML VIAL ONE (08:14)
[2024-01-29] MEDS ORDERED: METOCLOPRAMIDE HCL INJ 5 MG/ML 2 ML VIAL ONE (08:14)
[2024-01-29 08:29] LABS: CO2 Cord Arterial Blood 85 mmHg (39.1-73.5); HCO3 Cord Arterial Blood 24 mmol/L (19.7-28.5); Oxygen Sat Cord Arterial Blood < 60.0 % (<60); PO2 Cord Arterial Blood < 20 mmHg (4.1-31.7); pH Cord Arterial Blood 7.06 (7.1-7.38)
[2024-01-29 08:31] LABS: Base Excess Cord Venous Blood -6.1 mEq/L (-7.7-1.9); Cord Venous Blood HCO3 25 mmol/L (18.4-26.8); Cord Venous Blood PCO2 79 mmHg (30.4-57.2); Cord Venous Blood PO2 < 20 mmHg (14.1-43.3); Cord Venous Blood pH 7.11 (7.20-7.44); O2 Saturation Cord Venous Bld < 60.0 % (<68)
--- NOTE | 2024-01-29 08:44 | Anesthesia Procedure Note ---
Date of Service January 29, 2024 Anesthesia Post Epidural Note Vital Signs Vital Signs: Temp Pulse Resp BP Pulse Ox 37.2 C 95 H 18 98/55 L 94 01/29/24 05:05 01/29/24 08:41 01/29/24 07:31 01/29/24 08:41 01/29/24 08:41 Pain Intensity Lower Abdomen: Pain Intensity: 5 Notes Mental Status: alert / awake / arousable and participated in evaluation Nausea / Vomiting: adequately controlled Pain: adequately controlled Airway Patency, RR, SpO2: stable & adequate BP & HR: stable & adequate Hydration State: stable & adequate Neuraxial Anesthesia: was administered and sensory block is resolving Anesthetic Complications: no major complications apparent Epidural: Removed without complications and With tip intact
[2024-01-29] MEDS ORDERED: DIPHTHER/TETAN/PERTUS Vaccine (Tdap, Adol/Adult) 0.5mL IM ONE (08:52)
[2024-01-29] MEDS ORDERED: SENNA 8.6 MG TAB PO PRN (08:52)
[2024-01-29] MEDS ORDERED: BENZOCAINE 20% SPRY 85 APPLN/85 GM CAN EXT PRN (08:52)
[2024-01-29] MEDS ORDERED: MAGNESIUM HYDROXIDE SUSP 30 ML UDC PO PRN (08:52)
[2024-01-29] MEDS ORDERED: CALCIUM CARBONATE 500 MG CHEWABLE TAB PO PRN (08:52)
[2024-01-29] MEDS ORDERED: HYDROCORTISONE ACETATE 25 MG SUPP PR PRN (08:52)
--- NOTE | 2024-01-29 08:58 | Operative Report ---
Post Operative Report Pre & Post Diagnosis Operation Date: 01/29/24 07:15 Pre-Op Diagnosis: PREECLAMPSIA, FAILURE TO PROGRESS Post-Op Diagnosis: PREECLAMPSIA, FAILURE TO PROGRESS I identified the patient and participated in the time-out.: Yes Procedure Operation Date: 01/29/24 07:15 Actual Procedures p Primary Low Transverse Section in at 0757 - Shelly Gomez DO Surgeon Shelly Gomez, [place] Reverse Winder Bahman Martinez MD Quantitative Blood Loss (QBL) 207 Findings Consistent with Post-Op Diagnosis Viable male , APGARS and Weight not yet determined by nursery. Specimens placenta, cord blood, cord gas. Drains pandey clear yellow Anesthesia Type Labor Epidural Complications none Disposition Accompanied Patient To Recovery: Yes Disposition: L&D Indications 28yo @ 38 3, induction of labor d/t preeclampsia without severe features, also complicated by gestational diabetes A1, hypothyroidism, obesity, Rubella non-immune, marginal cord insertion. Induction of labor started with cytotec for cervical ripening, followed by pandey bulb and pitocin, then AROM for clear fluid. Intrauterine monitoring with IUPC and FSE, >4h adequate contractions with no progression beyond 5cm cervical dilation. FHT Category 1, however due to failed induction of labor, advised delivery via section, patient agreed. Description of Procedure The patient was seen in her labor and delivery room, risks benefits and alternatives to surgery were reviewed. Informed consent obtained. Questions were answered. She was taken to the operating room, spinal anesthesia was administered. She was then prepared and draped in the usual sterile fashion in the supine position with a leftward tilt. Timeout was confirmed. A Pfannenstiel skin incision was made with a scalpel, and carried through to the underlying layer of fascia. Fascia was nicked at midline, and this incision was extended bilaterally. The superior aspect of the fascial incision was grasped with Calderon clamps x2, elevated off the underlying rectus abdominis muscles, and dissected sharply and bluntly. In similar fashion, the inferior aspect of the fascial incision was dissected. The rectus abdominis muscles were , and the peritoneum was entered bluntly digitally. This was extended bilaterally. The bladder flap was taken down carefully using Metzenbaum scissors. Using a new scalpel, a low transverse uterine incision was created. Clear amniotic fluid noted. The was delivered from a cephalic presentation. The head delivered, followed by shoulders and body. The cord was doubly clamped and cut, and the was handed off to the waiting access service representative. A segment was retained for cord gases. Cord blood was obtained. The placenta was delivered spontaneously intact. The uterus was exteriorized, and cleared of all clots and debris. The hysterotomy incision was reapproximated using 0 Vicryl in a running locked stitch. A second layer of the same suture was used to imbricate the incision. Posterior uterus was evaluated and normal. The uterus was returned to the abdomen, and gutters were cleared of clots and debris. Excellent hemostasis was observed. The fascial incision was reapproximated using 0 Vicryl in a running stitch. The subcutaneous tissue was irrigated, and reapproximated using 2-0 plain gut in a running stitch. The skin was reapproximated using 4-0 Vicryl in a running subcuticular stitch. SAIMA bandage was applied. The patient tolerated the procedure well, and will be taken to the recovery area in stable and good condition. I attest to the content of the Intraoperative Record and any orders documented therein. Any exceptions are noted below. OB Procedure Charges 55802
[2024-01-29] MEDS ORDERED: OXYTOCIN 30 UNITS/LR 1,003 ML IV SCH ×2 (09:00)
[2024-01-29] MEDS: OXYTOCIN 20 UNITS/LR 1,002 ML IV SCH (09:00)
[2024-01-29] MEDS: ACETAMINOPHEN 500 MG TAB ONE (09:09)
[2024-01-29] MEDS: KETOROLAC 30 MG/ML VIAL IV PRN (09:11)
[2024-01-29] MEDS: KETOROLAC 30 MG/ML VIAL IV SCH (09:11)
[2024-01-29] MEDS: LEVOTHYROXINE SODIUM 150 MCG TABLET PO SCH (09:24)
[2024-01-29] MEDS: ESCITALOPRAM OXALATE 20 MG TAB PO SCH (09:24)
[2024-01-29] MEDS: LACTATED RINGER'S 500 ML IV ONE (11:40)
[2024-01-29] MEDS: SIMETHICONE 80 MG CHEW PO SCH (13:34)
[2024-01-29] MEDS: ACETAMINOPHEN 325 MG TAB PO SCH (15:22)
--- NOTE | 2024-01-29 15:48 | Anesthesiology Progress Note ---
Date of Service January 29, 2024 Anesthesia Post Procedure Vital Signs Vital Signs: Temp Pulse Pulse Resp BP BP Pulse Ox 01/29/24 14:00 16 99 01/29/24 14:00 96 H 18 123/77 99 01/29/24 13:00 16 99 01/29/24 12:25 18 01/29/24 12:00 18 97 01/29/24 12:00 36.6 C 89 18 136/85 97 01/29/24 11:52 93 H 97 01/29/24 11:47 92 H 98 01/29/24 11:42 86 97 01/29/24 11:38 86 144/76 H 01/29/24 11:37 86 96 01/29/24 11:32 85 97 01/29/24 11:28 82 147/80 H 01/29/24 11:27 86 97 01/29/24 11:22 88 97 01/29/24 11:18 93 H 152/80 H 01/29/24 11:17 96 H 96 01/29/24 11:12 82 95 01/29/24 11:08 75 144/72 H 01/29/24 11:07 78 95 01/29/24 11:02 77 95 01/29/24 10:58 81 141/75 H 01/29/24 10:57 82 95 01/29/24 10:52 79 95 01/29/24 10:48 86 151/72 H 01/29/24 10:47 81 95 01/29/24 10:42 83 96 01/29/24 10:40 36.6 C 18 01/29/24 10:38 76 144/71 H 01/29/24 10:37 81 95 01/29/24 10:32 80 96 01/29/24 10:28 78 136/73 01/29/24 10:27 77 96 01/29/24 10:22 83 96 01/29/24 10:18 81 131/75 01/29/24 10:17 86 98 01/29/24 10:12 87 98 01/29/24 10:10 18 01/29/24 10:08 89 143/74 H 01/29/24 10:06 93 01/29/24 10:06 86 01/29/24 10:06 80 92 01/29/24 10:01 93 01/29/24 10:01 79 01/29/24 10:01 81 92 01/29/24 09:58 79 133/69 01/29/24 09:56 88 96 01/29/24 09:51 87 97 01/29/24 09:48 81 137/68 01/29/24 09:46 88 93 01/29/24 09:41 80 95 01/29/24 09:40 36.6 C 18 01/29/24 09:38 82 145/77 H 01/29/24 09:36 90 98 01/29/24 09:31 95 H 96 01/29/24 09:30 18 01/29/24 09:28 88 147/73 H 01/29/24 09:26 99 H 97 01/29/24 09:21 92 H 98 01/29/24 09:20 18 01/29/24 09:18 96 H 139/70 01/29/24 09:16 89 97 01/29/24 09:11 92 H 97 01/29/24 09:10 18 01/29/24 09:08 101 H 133/63 01/29/24 09:07 109 H 225/151 H 01/29/24 09:06 101 H 98 01/29/24 09:05 96 H 174/75 H 01/29/24 09:03 102 H 81/44 L 01/29/24 09:01 92 H 84/49 L 97 01/29/24 09:00 18 01/29/24 08:59 81 92 01/29/24 08:56 85 96 01/29/24 08:51 87 95/53 L 94 01/29/24 08:50 18 01/29/24 08:46 92 H 98 01/29/24 08:41 95 H 98/55 L 94 01/29/24 08:40 36.6 C 18 01/29/24 07:31 18 01/29/24 07:31 18 01/29/24 07:28 108 H 100 01/29/24 07:23 108 H 100 01/29/24 07:22 114 H 121/67 01/29/24 07:18 105 H 98 01/29/24 07:15 18 01/29/24 07:13 98 H 99 01/29/24 07:08 115 H 116/66 99 01/29/24 07:05 111 H 94 01/29/24 07:03 108 H 99 01/29/24 06:58 108 H 99 01/29/24 06:53 100 01/29/24 06:53 106 H 01/29/24 06:53 105 H 111/63 01/29/24 06:48 110 H 99 01/29/24 06:43 118 H 100 01/29/24 06:38 122 H 114/69 100 01/29/24 06:33 122 H 100 01/29/24 06:28 111 H 98 01/29/24 06:23 95 H 97 01/29/24 06:22 107 H 109/59 L 01/29/24 06:18 97 H 97 01/29/24 06:13 106 H 98 01/29/24 06:08 101 H 100 01/29/24 06:07 96 H 109/58 L 01/29/24 06:03 93 H 98 01/29/24 05:58 101 H 97 01/29/24 05:53 98 H 99 01/29/24 05:52 104 H 104/53 L 01/29/24 05:48 110 H 100 01/29/24 05:43 99 H 100 01/29/24 05:38 105 H 102/52 L 100 01/29/24 05:33 101 H 100 01/29/24 05:28 93 H 98 01/29/24 05:23 107 H 100 01/29/24 05:22 99 H 115/76 01/29/24 05:18 85 96 01/29/24 05:13 89 96 01/29/24 05:08 91 H 97 01/29/24 05:07 91 H 126/85 01/29/24 05:05 37.2 C 01/29/24 05:03 88 97 01/29/24 04:58 93 H 96 01/29/24 04:53 92 H 96 01/29/24 04:52 100 H 125/76 01/29/24 04:48 94 H 97 01/29/24 04:43 101 H 97 01/29/24 04:38 104 H 100 01/29/24 04:37 113 H 126/84 01/29/24 04:33 121 H 100 01/29/24 04:28 126 H 100 01/29/24 04:23 89 96 01/29/24 04:22 90 106/66 01/29/24 04:18 87 97 01/29/24 04:15 83 93 01/29/24 04:13 78 92 01/29/24 04:09 83 94 01/29/24 04:08 95 H 96 01/29/24 04:04 79 93 01/29/24 04:03 80 97 01/29/24 03:58 84 95 01/29/24 03:53 81 96 01/29/24 03:52 81 103/65 01/29/24 03:48 83 96 01/29/24 03:43 81 97 01/29/24 03:38 85 97 01/29/24 03:37 86 114/58 L 01/29/24 03:33 90 95 01/29/24 03:28 92 H 98 01/29/24 03:23 89 99 01/29/24 03:22 96 H 111/65 01/29/24 03:18 97 H 98 01/29/24 03:13 92 H 100 01/29/24 03:08 100 H 99 01/29/24 03:07 96 H 114/66 01/29/24 03:05 36.8 C 01/29/24 03:04 91 H 94 01/29/24 03:03 87 95 01/29/24 02:58 90 95 01/29/24 02:57 90 94 01/29/24 02:53 88 95 01/29/24 02:52 97 H 108/55 L 01/29/24 02:51 92 H 94 01/29/24 02:48 96 H 95 01/29/24 02:43 97 H 98 01/29/24 02:38 100 01/29/24 02:38 101 H 01/29/24 02:38 104 H 113/59 L 01/29/24 02:32 101 H 100 01/29/24 02:27 93 H 99 01/29/24 02:22 89 111/56 L 99 01/29/24 02:17 96 H 100 01/29/24 02:12 103 H 100 01/29/24 02:07 91 01/29/24 02:07 110 H 01/29/24 02:07 119 H 93 01/29/24 02:02 103 H 100 01/29/24 01:57 84 97 01/29/24 01:54 97 H 93 01/29/24 01:52 97 01/29/24 01:52 103 H 01/29/24 01:52 114 H 112/79 01/29/24 01:47 101 H 95 01/29/24 01:42 89 95 01/29/24 01:38 90 110/75 01/29/24 01:37 84 94 01/29/24 01:36 90 94 01/29/24 01:32 93 H 94 01/29/24 01:28 97 H 93 01/29/24 01:27 88 95 01/29/24 01:23 93 H 111/76 01/29/24 01:22 94 H 95 01/29/24 01:17 100 H 97 01/29/24 01:12 92 H 96 01/29/24 01:10 18 01/29/24 01:10 37.2 C 18 01/29/24 01:08 97 H 117/77 01/29/24 01:07 98 H 96 01/29/24 01:05 104 H 93 01/29/24 01:02 92 H 95 01/29/24 00:57 96 H 93 01/29/24 00:53 94 H 94 01/29/24 00:52 96 01/29/24 00:52 89 01/29/24 00:52 102 H 100/69 01/29/24 00:48 98 H 94 01/29/24 00:47 100 H 96 01/29/24 00:42 107 H 98 01/29/24 00:38 112 H 106/76 01/29/24 00:37 117 H 99 01/29/24 00:32 109 H 96 01/29/24 00:27 113 H 97 01/29/24 00:23 114 H 121/74 01/29/24 00:22 105 H 99 01/29/24 00:17 114 H 100 01/29/24 00:12 116 H 100 01/29/24 00:07 102 H 100 01/29/24 00:02 90 97 01/28/24 23:57 79 96 01/28/24 23:53 83 94 01/28/24 23:52 96 01/28/24 23:52 80 01/28/24 23:52 77 105/61 01/28/24 23:47 83 97 01/28/24 23:42 80 96 01/28/24 23:37 81 103/52 L 96 01/28/24 23:32 80 96 01/28/24 23:27 78 95 01/28/24 23:22 97 01/28/24 23:22 79 01/28/24 23:22 73 98/63 L 01/28/24 23:17 81 98 01/28/24 23:12 86 100 01/28/24 23:07 96 H 114/64 97 01/28/24 23:02 36.8 C 102 H 99 01/28/24 22:57 87 95 01/28/24 22:56 94 H 94 01/28/24 22:52 93 H 116/57 L 95 01/28/24 22:50 85 94 01/28/24 22:47 90 95 01/28/24 22:42 93 H 95 01/28/24 22:37 96 01/28/24 22:37 95 H 01/28/24 22:37 96 H 113/55 L 01/28/24 22:32 92 H 95 01/28/24 22:29 92 H 94 01/28/24 22:27 96 H 95 01/28/24 22:22 94 H 108/60 97 01/28/24 22:17 88 97 01/28/24 22:12 89 97 01/28/24 22:07 107 H 98 01/28/24 22:02 102 H 97 01/28/24 21:57 94 01/28/24 21:57 97 H 01/28/24 21:57 101 H 94 01/28/24 21:53 104 H 108/67 01/28/24 21:52 105 H 96 01/28/24 21:47 108 H 99 01/28/24 21:42 109 H 100 01/28/24 21:37 110 H 100 01/28/24 21:32 103 H 100 01/28/24 21:27 103 H 100 01/28/24 21:22 108 H 114/76 100 01/28/24 21:17 105 H 100 01/28/24 21:12 106 H 99 01/28/24 21:10 101 H 92 01/28/24 21:07 97 H 100 01/28/24 21:02 113 H 100 01/28/24 21:00 36.9 C 01/28/24 20:57 130 H 100 01/28/24 20:52 99 01/28/24 20:52 100 H 01/28/24 20:52 101 H 103/61 01/28/24 20:47 90 98 01/28/24 20:42 91 H 98 01/28/24 20:37 99 01/28/24 20:37 90 01/28/24 20:37 88 106/57 L 01/28/24 20:32 96 H 99 01/28/24 20:27 91 H 100 01/28/24 20:22 93 H 112/62 99 01/28/24 20:17 84 100 01/28/24 20:12 101 H 100 01/28/24 20:07 100 H 99 01/28/24 20:02 96 H 99 01/28/24 19:58 86 94 01/28/24 19:57 89 95 01/28/24 19:52 95 01/28/24 19:52 90 01/28/24 19:52 91 H 109/57 L 01/28/24 19:47 92 H 97 01/28/24 19:42 95 H 98 01/28/24 19:37 94 H 114/58 L 99 01/28/24 19:32 97 H 99 01/28/24 19:27 97 H 98 01/28/24 19:22 99 01/28/24 19:22 93 H 01/28/24 19:22 95 H 109/55 L 01/28/24 19:17 103 H 98 01/28/24 19:12 98 01/28/24 19:12 97 H 01/28/24 19:12 92 H 94 01/28/24 19:07 101 H 131/74 100 01/28/24 19:02 96 H 100 01/28/24 19:00 37.0 C 20 01/28/24 19:00 20 01/28/24 19:00 18 01/28/24 19:00 18 01/28/24 18:57 114 H 100 01/28/24 18:52 109 H 125/71 100 01/28/24 18:47 96 H 100 01/28/24 18:42 96 H 100 01/28/24 18:39 102 H 125/73 01/28/24 18:37 95 H 100 01/28/24 18:32 103 H 100 01/28/24 18:30 18 01/28/24 18:30 18 01/28/24 18:27 101 H 99 01/28/24 18:22 101 H 96 01/28/24 18:17 97 H 100 01/28/24 18:12 103 H 100 01/28/24 18:08 92 H 120/69 01/28/24 18:07 90 96 01/28/24 18:02 97 H 96 01/28/24 18:00 18 01/28/24 18:00 18 01/28/24 17:57 93 H 98 01/28/24 17:52 100 01/28/24 17:52 97 H 01/28/24 17:52 99 H 118/68 01/28/24 17:47 112 H 98 01/28/24 17:45 92 H 113/67 01/28/24 17:42 98 H 97 01/28/24 17:37 107 H 96 01/28/24 17:32 112 H 99 01/28/24 17:30 18 01/28/24 17:30 18 01/28/24 17:27 103 H 100 01/28/24 17:22 98 H 103/70 98 01/28/24 17:17 103 H 100 01/28/24 17:12 95 H 100 01/28/24 17:11 99 H 95/53 L 01/28/24 17:09 78 91 01/28/24 17:07 99 H 100 01/28/24 17:02 94 H 100 01/28/24 17:00 18 01/28/24 17:00 18 01/28/24 16:57 95 H 100 01/28/24 16:54 106 H 92 01/28/24 16:52 93 H 95/50 L 100 01/28/24 16:47 102 H 100 01/28/24 16:42 98 H 100 01/28/24 16:38 96 H 95/54 L 01/28/24 16:37 96 H 100 01/28/24 16:32 97 H 100 01/28/24 16:30 18 01/28/24 16:30 36.8 C 18 01/28/24 16:27 103 H 100 01/28/24 16:22 97 H 100 01/28/24 16:17 98 H 99 01/28/24 16:12 95 H 99 01/28/24 16:08 99 H 112/58 L 01/28/24 16:07 98 H 100 01/28/24 16:02 96 H 100 01/28/24 16:00 18 01/28/24 16:00 18 01/28/24 15:57 94 H 99 01/28/24 15:52 87 126/74 97 O2 Del Method 01/29/24 14:00 01/29/24 14:00 Room Air 01/29/24 13:00 01/29/24 12:25 01/29/24 12:00 01/29/24 12:00 Room Air 01/29/24 11:52 01/29/24 11:47 01/29/24 11:42 01/29/24 11:38 01/29/24 11:37 01/29/24 11:32 01/29/24 11:28 01/29/24 11:27 01/29/24 11:22 01/29/24 11:18 01/29/24 11:17 01/29/24 11:12 01/29/24 11:08 01/29/24 11:07 01/29/24 11:02 01/29/24 10:58 01/29/24 10:57 01/29/24 10:52 01/29/24 10:48 01/29/24 10:47 01/29/24 10:42 01/29/24 10:40 01/29/24 10:38 01/29/24 10:37 01/29/24 10:32 01/29/24 10:28 01/29/24 10:27 01/29/24 10:22 01/29/24 10:18 01/29/24 10:17 01/29/24 10:12 01/29/24 10:10 01/29/24 10:08 01/29/24 10:06 01/29/24 10:06 01/29/24 10:06 01/29/24 10:01 01/29/24 10:01 01/29/24 10:01 01/29/24 09:58 01/29/24 09:56 01/29/24 09:51 01/29/24 09:48 01/29/24 09:46 01/29/24 09:41 01/29/24 09:40 01/29/24 09:38 01/29/24 09:36 01/29/24 09:31 01/29/24 09:30 01/29/24 09:28 01/29/24 09:26 01/29/24 09:21 01/29/24 09:20 01/29/24 09:18 01/29/24 09:16 01/29/24 09:11 01/29/24 09:10 01/29/24 09:08 01/29/24 09:07 01/29/24 09:06 01/29/24 09:05 01/29/24 09:03 01/29/24 09:01 01/29/24 09:00 01/29/24 08:59 01/29/24 08:56 01/29/24 08:51 01/29/24 08:50 01/29/24 08:46 01/29/24 08:41 01/29/24 08:40 01/29/24 07:31 01/29/24 07:31 01/29/24 07:28 01/29/24 07:23 01/29/24 07:22 01/29/24 07:18 01/29/24 07:15 01/29/24 07:13 01/29/24 07:08 01/29/24 07:05 01/29/24 07:03 01/29/24 06:58 01/29/24 06:53 01/29/24 06:53 01/29/24 06:53 01/29/24 06:48 01/29/24 06:43 01/29/24 06:38 01/29/24 06:33 01/29/24 06:28 01/29/24 06:23 01/29/24 06:22 01/29/24 06:18 01/29/24 06:13 01/29/24 06:08 01/29/24 06:07 01/29/24 06:03 01/29/24 05:58 01/29/24 05:53 01/29/24 05:52 01/29/24 05:48 01/29/24 05:43 01/29/24 05:38 01/29/24 05:33 01/29/24 05:28 01/29/24 05:23 01/29/24 05:22 01/29/24 05:18 01/29/24 05:13 01/29/24 05:08 01/29/24 05:07 01/29/24 05:05 01/29/24 05:03 01/29/24 04:58 01/29/24 04:53 01/29/24 04:52 01/29/24 04:48 01/29/24 04:43 01/29/24 04:38 01/29/24 04:37 01/29/24 04:33 01/29/24 04:28 01/29/24 04:23 01/29/24 04:22 01/29/24 04:18 01/29/24 04:15 01/29/24 04:13 01/29/24 04:09 01/29/24 04:08 01/29/24 04:04 01/29/24 04:03 01/29/24 03:58 01/29/24 03:53 01/29/24 03:52 01/29/24 03:48 01/29/24 03:43 01/29/24 03:38 01/29/24 03:37 01/29/24 03:33 01/29/24 03:28 01/29/24 03:23 01/29/24 03:22 01/29/24 03:18 01/29/24 03:13 01/29/24 03:08 01/29/24 03:07 01/29/24 03:05 01/29/24 03:04 01/29/24 03:03 01/29/24 02:58 01/29/24 02:57 01/29/24 02:53 01/29/24 02:52 01/29/24 02:51 01/29/24 02:48 01/29/24 02:43 01/29/24 02:38 01/29/24 02:38 01/29/24 02:38 01/29/24 02:32 01/29/24 02:27 01/29/24 02:22 01/29/24 02:17 01/29/24 02:12 01/29/24 02:07 01/29/24 02:07 01/29/24 02:07 01/29/24 02:02 01/29/24 01:57 01/29/24 01:54 01/29/24 01:52 01/29/24 01:52 01/29/24 01:52 01/29/24 01:47 01/29/24 01:42 01/29/24 01:38 01/29/24 01:37 01/29/24 01:36 01/29/24 01:32 01/29/24 01:28 01/29/24 01:27 01/29/24 01:23 01/29/24 01:22 01/29/24 01:17 01/29/24 01:12 01/29/24 01:10 01/29/24 01:10 01/29/24 01:08 01/29/24 01:07 01/29/24 01:05 01/29/24 01:02 01/29/24 00:57 01/29/24 00:53 01/29/24 00:52 01/29/24 00:52 01/29/24 00:52 01/29/24 00:48 01/29/24 00:47 01/29/24 00:42 01/29/24 00:38 01/29/24 00:37 01/29/24 00:32 01/29/24 00:27 01/29/24 00:23 01/29/24 00:22 01/29/24 00:17 01/29/24 00:12 01/29/24 00:07 01/29/24 00:02 01/28/24 23:57 01/28/24 23:53 01/28/24 23:52 01/28/24 23:52 01/28/24 23:52 01/28/24 23:47 01/28/24 23:42 01/28/24 23:37 01/28/24 23:32 01/28/24 23:27 01/28/24 23:22 01/28/24 23:22 01/28/24 23:22 01/28/24 23:17 01/28/24 23:12 01/28/24 23:07 01/28/24 23:02 01/28/24 22:57 01/28/24 22:56 01/28/24 22:52 01/28/24 22:50 01/28/24 22:47 01/28/24 22:42 01/28/24 22:37 01/28/24 22:37 01/28/24 22:37 01/28/24 22:32 01/28/24 22:29 01/28/24 22:27 01/28/24 22:22 01/28/24 22:17 01/28/24 22:12 01/28/24 22:07 01/28/24 22:02 01/28/24 21:57 01/28/24 21:57 01/28/24 21:57 01/28/24 21:53 01/28/24 21:52 01/28/24 21:47 01/28/24 21:42 01/28/24 21:37 01/28/24 21:32 01/28/24 21:27 01/28/24 21:22 01/28/24 21:17 01/28/24 21:12 01/28/24 21:10 01/28/24 21:07 01/28/24 21:02 01/28/24 21:00 01/28/24 20:57 01/28/24 20:52 01/28/24 20:52 01/28/24 20:52 01/28/24 20:47 01/28/24 20:42 01/28/24 20:37 01/28/24 20:37 01/28/24 20:37 01/28/24 20:32 01/28/24 20:27 01/28/24 20:22 01/28/24 20:17 01/28/24 20:12 01/28/24 20:07 01/28/24 20:02 01/28/24 19:58 01/28/24 19:57 01/28/24 19:52 01/28/24 19:52 01/28/24 19:52 01/28/24 19:47 01/28/24 19:42 01/28/24 19:37 01/28/24 19:32 01/28/24 19:27 01/28/24 19:22 01/28/24 19:22 01/28/24 19:22 01/28/24 19:17 01/28/24 19:12 01/28/24 19:12 01/28/24 19:12 01/28/24 19:07 01/28/24 19:02 01/28/24 19:00 01/28/24 19:00 01/28/24 19:00 01/28/24 19:00 01/28/24 18:57 01/28/24 18:52 01/28/24 18:47 01/28/24 18:42 01/28/24 18:39 01/28/24 18:37 01/28/24 18:32 01/28/24 18:30 01/28/24 18:30 01/28/24 18:27 01/28/24 18:22 01/28/24 18:17 01/28/24 18:12 01/28/24 18:08 01/28/24 18:07 01/28/24 18:02 01/28/24 18:00 01/28/24 18:00 01/28/24 17:57 01/28/24 17:52 01/28/24 17:52 01/28/24 17:52 01/28/24 17:47 01/28/24 17:45 01/28/24 17:42 01/28/24 17:37 01/28/24 17:32 01/28/24 17:30 01/28/24 17:30 01/28/24 17:27 01/28/24 17:22 01/28/24 17:17 01/28/24 17:12 01/28/24 17:11 01/28/24 17:09 01/28/24 17:07 01/28/24 17:02 01/28/24 17:00 01/28/24 17:00 01/28/24 16:57 01/28/24 16:54 01/28/24 16:52 01/28/24 16:47 01/28/24 16:42 01/28/24 16:38 01/28/24 16:37 01/28/24 16:32 01/28/24 16:30 01/28/24 16:30 01/28/24 16:27 01/28/24 16:22 01/28/24 16:17 01/28/24 16:12 01/28/24 16:08 01/28/24 16:07 01/28/24 16:02 01/28/24 16:00 01/28/24 16:00 01/28/24 15:57 01/28/24 15:52 Pain Intensity Lower Abdomen: Pain Intensity: 1 Transfer of Care Handoff Completed per policy Notes Mental Status: alert / awake / arousable Patient Amnestic to Procedure: Yes Nausea / Vomiting: adequately controlled Pain: adequately controlled Airway Patency, RR, SpO2: stable & adequate BP & HR: stable & adequate Hydration State: stable & adequate Anesthetic Complications: no major complications apparent
[2024-01-29] MEDS: DOCUSATE SODIUM 100 MG CAP PO SCH (20:30)
[2024-01-30] MEDS ORDERED: diphenhydrAMINE 50 MG/ML VIAL IV PRN (02:23)
[2024-01-30] MEDS ORDERED: ONDANSETRON INJ 2 MG/ML 2 ML VIAL IV PRN (02:23)
[2024-01-30] MEDS ORDERED: diphenhydrAMINE Capsule 25 MG CAP PO PRN (02:23)
[2024-01-30] MEDS ORDERED: HYDROmorphone INJ 0.5 MG/0.5 ML SYR IV PRN (02:23)
[2024-01-30] MEDS ORDERED: PROMETHAZINE 12.5 MG/50.5 ML BAG IV PRN (02:23)
[2024-01-30] MEDS ORDERED: oxyCODONE HCL IR 5 MG TAB (IMMEDIATE RELEASE) PO PRN (02:23)
--- NOTE | 2024-01-30 05:30 | Obstetrical Progress Note ---
Date of Service <Miriam Alvarado MD - Last Filed: 01/30/24 06:53> January 30, 2024 Assessment & Plan <Miriam Alvarado MD - Last Filed: 01/30/24 06:53> (1) care and examination: Plan POD#1 s/p term LTCS. Stable. Continue routine care Continue OOB and ambulation, diet as tolerated Rh+, gbs-. rubella non-immune, need for MMR Baby taken to NICU; consider DC today if vitals remain stable, w close follow-up <Lucia Martinez MD, FACOG - Last Filed: 01/30/24 08:58> (1) care and examination: Subjective <Miriam Alvarado MD - Last Filed: 01/30/24 06:53> Cari is a 28 y/o female who is POD#1 following delivery at term d/t preeclampsia + FTP Is having "less than 1/10" pain, voiding, eating, ambulating normally No BM but is passing gas Minimal lochia Currently /pumping breast milk Is having some swelling 2/2 IVF Constitutional: no fever, no chills or no sweats Respiratory: no dyspnea Cardiovascular: no chest pain, no palpitations or no calf pain Breast: no breast pain Genitourinary (female): no dysuria Neurologic: no headache(s) no changes in vision, no headaches Physical Exam <Miriam Alvarado MD - Last Filed: 01/30/24 06:53> General: Alert, oriented. No acute distress. Some generalized swelling Cardiac: Regular rate and rhythm, no murmurs, rubs, or gallops. Respiratory: Clear to auscultation bilaterally, no wheezes/rales/rhonchi. No increased work of breathing. Symmetrical chest rise. No respiratory distress. Abdomen: Soft, nontender, nondistended. Bowel sounds present. Uterus: Uterine fundus firm, nontender. Surgical dressing c/d/i Lower extremities: No deep calf pain. Results & Data <Miriam Alvarado MD - Last Filed: 01/30/24 06:53> Vital Signs (Past 12 Hours) Vital Signs Temp Pulse Resp BP Pulse Ox O2 Del Method 01/30/24 03:20 36.7 C 88 18 123/81 99 Room Air 01/30/24 02:00 16 93 01/30/24 01:00 16 93 01/30/24 00:00 18 96 01/29/24 23:00 18 98 01/29/24 23:00 36.7 C 86 18 113/75 98 Room Air 01/29/24 21:30 20 97 01/29/24 20:30 20 97 01/29/24 20:30 36.8 C 87 20 125/85 97 Room Air 01/29/24 19:30 20 97 01/29/24 18:30 20 97 01/29/24 17:30 20 97 Laboratory Results 01/30/24 05:51 01/29/24 06:56 Supervising Physician <Lucia Martinez MD, FACOG - Last Filed: 01/30/24 08:58> Co-Signing Physician Notes Resident Physician Supervision Note: I interviewed and examined the patient. Discussed with Dr. Alvarado and agree with findings and plan as documented in the note. Any exceptions or clarifications are listed here: Doing well. Will need to monitor her blood pressures. Have looked good since transferring to the floor. If looks good by early afternoon, consider d/c with close f/u for bp check on Sunday. Documented By: Lucia Martinez MD, FACOG Resident Activity Tracking <Miriam Alvarado MD - Last Filed: 01/30/24 06:53> Resident Involvement: Resident Care Provided Care Provided: [facility]
[2024-01-30 06:31] LABS: Basophils # (auto) 0.05 K/uL (0.00-0.20); Basophils % (auto) 0.4 %; Eosinophils # (auto) 0.12 K/uL (0.00-0.50); Eosinophils % (auto) 0.9 %; Hematocrit (blood only) 33.8 % (37.0-47.0); Immature Granulocytes # (auto) 0.09 K/uL (0.01-0.20); Immature Granulocytes % (auto) 0.6 %; Lymphocytes # (auto) 1.65 K/uL (1.20-3.40); Lymphocytes % (auto) 11.9 %; Mean Corpuscular Hemoglobin 28.9 pg (25.0-34.0); Mean Corpuscular Hgb Conc 32.5 g/dL (32.0-36.0); Mean Corpuscular Volume 88.7 fL (80.0-100.0); Mean Platelet Volume 11.1 fL (9.4-12.4); Monocytes # (auto) 1.12 K/uL (0.11-0.59); Monocytes % (auto) 8.1 %; Neutrophils # (auto) 10.82 K/uL (1.40-6.50); Neutrophils % (auto) 78.1 %; Platelet Count 178 K/uL (130-400); RDW Coefficient of Variation 14.6 % (11.5-14.5); RDW Standard Deviation 46.6 fL (36.4-46.3); Red Blood Count 3.81 M/uL (4.20-5.40); White Blood Count 13.85 K/ul (4.8-10.8)
[2024-01-30] MEDS: PRENATAL VITAMIN 1 TAB PO SCH (08:25)
[2024-01-30] MEDS: FERROUS SULFATE 325 MG TAB PO SCH (08:25)
[2024-01-30] MEDS: IBUPROFEN 600 MG TAB PO SCH (08:25)
[2024-01-30 11:42] VITALS: BP 127/86; PULSE 96; RESP 16; TEMP 97.5; O2SAT 97
[2024-01-30] MEDS ORDERED: bisacodyL 5 MG TABEC PO SCH (20:00)
[2024-01-31] MEDS ORDERED: bisacodyL 10 MG SUPP PR PRN (08:48)
[2024-01-31] MEDS ORDERED: IBUPROFEN 600 MG TAB PO PRN (08:48)
[2024-01-31] MEDS ORDERED: ACETAMINOPHEN 325 MG TAB PO PRN (14:48)
--- NOTE | 2024-01-31 17:30 | Discharge Summary ---
Date of Service January 31, 2024 Admission HPI Per Admitting Provider 28yo at 38+wks egsohail presents to LD at first with concerns of leaking, not confirmed but instead meets criteria for diagnosis of preeclampia, without severe features. Has had on and off ctx. No rom confirmed over multiple hours. +FM. PNC c/b 1. GDM, last efw 61% 2. Hypothyroid 3. obesity 4. Needs mmr pp. 5. echo normal 6. marginal cord insertion PNL rh pos, ri, gbs neg OBH: g1 GYNH: nl paps no stds Discharge Data Consultations 01/27/24 19:41 Consult Anesthesiology Stat Procedures Performed Operation Date: 01/29/24 07:15 Actual Procedures p Section in [facility] at [id number] - Shelly Gomez DO Hospital Course (1) care and examination: Plan POD#1 s/p term LTCS. Stable. Continue routine care Continue OOB and ambulation, diet as tolerated Rh+, gbs-. rubella non-immune, need for MMR Baby taken to NICU; consider DC today if vitals remain stable, w close follow-up Coding Level of Care Code None Diagnoses care and examination Z39.2
== END 2024-01-30 13:50 | disposition home or self-care (01) | DRG 788 ==
LOC: OPB 14:10 → 4S1 14:12 → 4E2 01-29 12:34
DX: Z37.0 Single live birth; O62.2 Other uterine inertia; O99.284 Endocrine, nutritional and metabolic diseases complicating childbirth; O99.214 Obesity complicating childbirth; O61.0 Failed medical induction of labor; E03.9 Hypothyroidism, unspecified; Z3A.38 38 weeks gestation of pregnancy; O24.420 Gestational diabetes mellitus in childbirth, diet controlled; O14.94 Unspecified pre-eclampsia, complicating childbirth; E66.9 Obesity, unspecified; O44.23 Partial placenta previa NOS or without hemorrhage, third trimester